=== PATIENT | male | born 1940 | race Caucasian/White ===

== ENCOUNTER 2018-10-04 11:20 | Emergency (ER) | payer OTHER, SELFPAY ==
[2018-10-04 11:34] VITALS: BP 150/76; PULSE 74; RESP 12; TEMP 36.6; O2SAT 99
--- NOTE | 2018-10-04 11:42 | DI.RAD.S_ITS ---
PROCEDURE: XR ELBOW LT MIN 3V INDICATIONS: injury/ now swollen TECHNIQUE: 3 views of the elbow were acquired. COMPARISON: None. FINDINGS: Bones: No fractures or dislocations. No suspicious bony lesions. There is a corticated ossicle adjacent to the medial epicondyle. Soft tissues: No elbow joint effusion. No suspicious soft tissue calcifications. Soft tissue swelling over the olecranon. IMPRESSION: 1. No acute fracture or dislocation. 2. Corticated ossicle adjacent to the medial epicondyle, likely sequela of old injury. 3. Soft tissue swelling over the olecranon. Dictated by: Alejandra Douglas M.D. on 10/04/2018 at 12:12 Approved by: Alejandra Douglas M.D. on 10/04/2018 at 12:15
--- NOTE | 2018-10-04 13:02 | ED.UPPEXIN ---
HPI - Extremity Injury (Upper) <PATITO Matute - Last Filed: 10/04/18 23:32> General Chief Complaint: Extremity Injury, Upper Stated Complaint: LUMP ON ELBOW,SWELLING DOWN L ARM Time Seen by Provider: 10/04/18 13:02 Source: patient and family Mode of arrival: ambulatory Limitations: no limitations History of Present Illness HPI narrative: This is a 77-year-old male, previous smoker, who presents with his spouse with chief complain of left elbow swelling which radiating to his lower arm. The patient reports he bumped his left elbow 2 weeks ago has been having swelling since then in posterior elbow. He was seen at walk-in clinic and diagnosed with olecranon bursitis. He had placed with Levy wrap on his left elbow. He and his we wrapped the area at home but mild of applied to tight and He noticed his lower arm had increased swelling and came to ED for re-evaluation. Patient denies fever, chills, nausea, vomiting, increasing pain, redness, tingling numbness to distal arm, weakness. Patient reports they are about to go on saline for next 4 weeks and he has appointment with his primary care physician when he returns in mid October. Related Data Home Medications Medication Instructions Recorded Confirmed tamsulosin [Flomax] 0.8 mg PO DAILY #0 12/16/10 10/04/18 albuterol sulfate HFA 90 2 puff INHALATION Q4-6H PRN 10/02/18 10/04/18 mcg/actuation aerosol inhaler amlodipine 5 mg tablet 10 mg PO DAILY 10/02/18 10/04/[address] - ER 3 mg 3 mg PO DAILY 10/02/18 10/02/18 capsule,delayed,extended release clopidogrel 75 mg tablet 75 mg PO DAILY 10/02/18 10/04/18 fluticasone propionate 50 2 spray NASAL DAILY 10/02/18 10/02/18 mcg/actuation nasal spray,suspension gabapentin 300 mg capsule 300 mg PO DAILY 10/02/18 10/02/18 losartan 50 mg tablet 50 mg PO BID 10/02/18 10/04/18 metoprolol succinate ER 100 mg 100 mg PO DAILY 10/02/18 10/04/18 tablet,extended release 24 hr pramipexole 1.5 mg tablet 1.5 mg PO BEDTIME 10/02/18 10/02/18 zolpidem 10 mg tablet 10 mg PO BEDTIME #0 tab 10/02/18 10/02/18 alendronate 70 mg PO QWEEK 10/04/18 10/04/18 pravastatin 80 mg PO DAILY 10/04/18 10/04/18 Allergies Allergy/AdvReac Type Severity Reaction Status Date / Time chlorthalidone Allergy Severe hyponatremi Verified 10/02/18 08:44 a hydrochlorothiazide Allergy Severe hyponatremi Verified 10/02/18 08:44 a lisinopril Allergy Severe facial Verified 10/02/18 08:44 swelling Review of Systems <PATITO Matute - Last Filed: 10/04/18 23:32> Review of Systems General: See HPI HEENT: Denies sinus pain, ear pain, sore throat, difficulty swallowing, dizziness. Respiratory: Denies dyspnea, cough, wheezing, hemoptysis, sputum. Cardiovascular: Denies chest pain, palpitations, orthopnea, edema. Gastrointestinal: Denies nausea, vomiting, abdominal pain, diarrhea, constipation, melena. : Denies dysuria, frequency, incontinence, hematuria, urinary retention. Musculoskeletal: See HPI Skin: Denies rash, skin lesions, or other. Neurologic: Denies weakness, headache, numbness, change in speech, confusion, seizures, incoordination. Psychiatric: No concerning psychosocial issues. 12-point review of systems is negative except for those stated above. PFS <PATITO Matute - Last Filed: 10/04/18 23:32> Medical History (Updated 10/04/18 @ 22:57 by PATITO Matute) BPH (benign prostatic hyperplasia) (Acute) HTN (hypertension) (Acute) Hyperlipidemia (Acute) Leg pain (Acute) Restless leg syndrome (Acute) Seasonal allergic rhinitis (Acute) Diverticulitis (Chronic) GI bleed (Chronic) Lymphocytic colitis (Chronic) Prostatitis (Chronic) Sepsis (Chronic) TIA (transient ischemic attack) (Chronic) Surgical History (Updated 10/04/18 @ 22:58 by PATITO Matute) History of rotator cuff surgery (Chronic) Social History Smoking Status: Former smoker Social History Smoking Status: Former smoker Exam <PATITO Matute - Last Filed: 10/04/18 23:32> Narrative Exam Narrative: General appearance: well developed, well nourished, in no acute distress. Head: normocephalic, atraumatic, no scalp lesions, non-tender. Eye: pupil equal, round. EOMI. Nose: nares patent. Oral: mucosa moist. Neck/Thyroid: neck supple, full range of motion, no visible masses. Skin: no suspicious rashes, lesions over visible areas. Warm and dry. Heart: no clubbing, no cyanosis, no edema. Lungs: Breathing even and unlabored. No stridor. No accessory muscles used. Chest: normal shape and expansion. Abdomen: non-obese, non-distended. Neurologic: alert and oriented. 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 Psych: good eye contact, normal affect. Initial Vital Signs Initial Vital Signs: Vital Signs Temperature 97.8 F 10/04/18 11:34 Pulse Rate 74 10/04/18 11:34 Respiratory Rate 12 10/04/18 11:34 Blood Pressure 150/76 H 10/04/18 11:34 Pulse Oximetry 99 10/04/18 11:34 Extrem Right upper extremity: normal to inspection, full ROM and normal capillary refill; no edema Left upper extremity: full ROM, normal capillary refill, edema (posterior elbow, forearm to wrist), elbow/forearm Details: abnormal to inspection, swelling, normal ROM, warmth (very mild), distal pulses intact and other (no erythema); no tenderness, no abrasions and no ecchymosis and wrist Details: swelling; no tenderness and no unusual warmth <Samara Starks MD - Last Filed: 10/05/18 07:13> Initial Vital Signs Initial Vital Signs: Vital Signs Temperature 97.8 F 10/04/18 11:34 Pulse Rate 74 10/04/18 11:34 Respiratory Rate 12 10/04/18 11:34 Blood Pressure 150/76 H 10/04/18 11:34 Pulse Oximetry 99 10/04/18 11:34 Procedures <PATITO Matute - Last Filed: 10/04/18 23:32> Orthopedic Splinting/Casting Injury #1: Side: left Upper Extremity Injury Location: elbow Lower Extremity Immobilizer: Levy wrap Course <PATITO Matute - Last Filed: 10/04/18 23:32> Orders Ordered: ED Orders 10/04/18 11:42 XR elbow LT min 3V Stat Vital Signs - 8 hr 10/04/18 11:34 Temperature 97.8 F Pulse Rate 74 Respiratory Rate 12 Blood Pressure 150/76 H Pulse Oximetry 99 <Samara Starks MD - Last Filed: 10/05/18 07:13> Orders Ordered: ED Orders 10/04/18 11:42 XR elbow LT min 3V Stat Vital Signs - 8 hr 10/04/18 11:34 Temperature 97.8 F Pulse Rate 74 Respiratory Rate 12 Blood Pressure 150/76 H Pulse Oximetry 99 MDM - Extremity Injury (Upper) <Jared PATITO Gregorio - Last Filed: 10/04/18 23:32> Differential Diagnosis Differential diagnosis: Likely other (olecranon bursitis, swelling due to gravity to lower arm, joint infection, effusion in joint) Medical Records Attestation: I reviewed the patient's medical records. Imaging Data XR Elbow: Radiologist's impression: Roverto Martin 77 M [address] [place] [address] XRay Report Signed Patient: Roverto Martin [facility]#: [id number] : 1Acct:[id number] Age/Sex: 77 / MDate of Service: 10/04/18 Loc: ED Accession Number: [id number] Procedure: XR elbow LT min 3V Ordering Provider: Samaar Starks MD PROCEDURE: XR ELBOW LT MIN 3V INDICATIONS: injury/ now swollen TECHNIQUE: 3 views of the elbow were acquired. COMPARISON: None. FINDINGS: Bones: No fractures or dislocations. No suspicious bony lesions. There is a corticated ossicle adjacent to the medial epicondyle. Soft tissues: No elbow joint effusion. No suspicious soft tissue calcifications. Soft tissue swelling over the olecranon. IMPRESSION: 1. No acute fracture or dislocation. 2. Corticated ossicle adjacent to the medial epicondyle, likely sequela of old injury. 3. Soft tissue swelling over the olecranon. Dictated by: Alejandra Douglas M.D. on 10/04/2018 at 12:12 Approved by: Alejandra Douglas M.D. on 10/04/2018 at 12:15 [facility] Narrative Medical decision making narrative: This is a 77-year-old male who had posterior left elbow swelling for last couple of weeks after he bumped his affected elbow. He denies constitutional symptoms, warmth, decreased range of motion, increasing pain, redness on the affected site. He was sailing since the injury and return to home a few days ago then he finally was evaluated walk-in clinic 2 days ago was diagnosed with olecranon bursitis and had placed on Levy wrap and RICE therapy. However, he has been busy using his left arm but used Levy wrap on affected site for swelling and this was reapplied by he his spouse at home. He is about to go on saline again for another 4 weeks and he is here for re-evaluation on swelling that has been spread to his left for arm up to wrist. The physical finding is not indicated for septic joint. X-ray shows but soft tissue swelling over the olecranon. We discussed in length about RICE therapy and apply Levy wrap evenly and not to tightly. Patient is unable to take NSAIDS due to previous GI bleed. Patient advised it is to use [id number] Tylenol for discomfort. I emphasized for monitoring for return precautions such as increasing pain, redness, warmth, fever, joint pain, decrease range of motion, tingling numbness to distal arm and that he needs evaluation very soon if this occurs and possible antibiotic medication treatment for joint infection. Patient verbalized the understanding and agrees with treatment plan. Discharge Plan Departure Patient Disposition: Home Clinical Impression: Bursitis of elbow Qualifiers: Elbow bursitis location: olecranon bursitis Laterality: left Qualified Code(s): M70.22 - Olecranon bursitis, left elbow Discharge Date/Time: 10/04/18 13:30 Interventions: ED Discharge Assessment Last Done: 10/04/18 13:29 Instructions: DI for Elbow Bursitis Activity Restrictions/Additional Instructions: You have been diagnosed with [elbow, olecranon, bursitis on your left arm]. What to do: *Take your medications as directed. Since you are not able to take NSAIDS due to previous GI bleed and using Plavix, please use [id number] Tylenol/acetaminophen as needed for discomfort. Please rest you're left arm use. Use Levy wrap that was provided from ED. Use ice pack for swelling. *Follow up with your primary care provider in 2-3 days, call for an appointment. Let them know you were seen in the ED and that we asked you to be seen in follow up. *Return to ED if you have any new, worsening, or concerning symptoms, such as [increasing redness, swelling, fever, pain, weakness to your L arm, decreased sensation to left arm, in this case you should be seen by nearby clinics/hospital as soon as possible for evaluation and possible antibiotic medication treatment]. Have a safe trip! Prescriptions: No Action losartan 50 mg tablet 50 mg PO BID RF: 0 metoprolol succinate 100 mg tablet extended release 24 hr 100 mg PO DAILY RF: 0 clopidogrel 75 mg tablet 75 mg PO DAILY RF: 0 amlodipine 5 mg tablet 10 mg PO DAILY RF: 0 gabapentin 300 mg capsule 300 mg PO DAILY RF: 0 budesonide 3 mg capsule,delayed,extend.release 3 mg PO DAILY RF: 0 albuterol sulfate [ProAir HFA] 90 mcg/actuation HFA aerosol inhaler 2 puff INHALATION Q4-6H PRN (Reason: Shortness Of Breath) RF: 0 fluticasone propionate [Flonase Allergy Relief] 50 mcg/actuation spray,suspension 2 spray NASAL DAILY RF: 0 pramipexole 1.5 mg tablet 1.5 mg PO BEDTIME RF: 0 tamsulosin [Flomax] 0.4 MG capsule,extended release 24hr 0.8 mg PO DAILY Qty: 0 RF: 0 zolpidem [Ambien] 10 mg tablet 10 mg PO BEDTIME Qty: 0 RF: 0 alendronate 70 mg Tablet 70 mg PO QWEEK RF: 0 pravastatin 80 mg Tablet 80 mg PO DAILY RF: 0 Referrals: Jerilyn Javed MD [Primary Care Provider] -
--- NOTE | 2018-10-04 13:05 | ED_ITS ---
HPI - Extremity Injury (Upper) <PATITO Matute - Last Filed: 10/04/18 23:32> General Chief Complaint: Extremity Injury, Upper Stated Complaint: LUMP ON ELBOW,SWELLING DOWN L ARM Time Seen by Provider: 10/04/18 13:02 Source: patient and family Mode of arrival: ambulatory Limitations: no limitations History of Present Illness HPI narrative: This is a 77-year-old male, previous smoker, who presents with his spouse with chief complain of left elbow swelling which radiating to his lower arm. The patient reports he bumped his left elbow 2 weeks ago has been having swelling since then in posterior elbow. He was seen at walk-in clinic and diagnosed with olecranon bursitis. He had placed with Levy wrap on his left elbow. He and his we wrapped the area at home but mild of applied to tight and He noticed his lower arm had increased swelling and came to ED for re- evaluation. Patient denies fever, chills, nausea, vomiting, increasing pain, redness, tingling numbness to distal arm, weakness. Patient reports they are about to go on saline for next 4 weeks and he has appointment with his primary care physician when he returns in mid October. Related Data Home Medications Medication Instructions Recorded Confirmed tamsulosin [Flomax] 0.8 mg PO DAILY #0 12/16/10 10/04/18 albuterol sulfate HFA 90 2 puff INHALATION Q4-6H PRN 10/02/18 10/04/18 mcg/actuation aerosol inhaler amlodipine 5 mg tablet 10 mg PO DAILY 10/02/18 10/04/[address] - ER 3 mg 3 mg PO DAILY 10/02/18 10/02/18 capsule,delayed,extended release clopidogrel 75 mg tablet 75 mg PO DAILY 10/02/18 10/04/18 fluticasone propionate 50 2 spray NASAL DAILY 10/02/18 10/02/18 mcg/actuation nasal spray,suspension gabapentin 300 mg capsule 300 mg PO DAILY 10/02/18 10/02/18 losartan 50 mg tablet 50 mg PO BID 10/02/18 10/04/18 metoprolol succinate ER 100 mg 100 mg PO DAILY 10/02/18 10/04/18 tablet,extended release 24 hr pramipexole 1.5 mg tablet 1.5 mg PO BEDTIME 10/02/18 10/02/18 zolpidem 10 mg tablet 10 mg PO BEDTIME #0 tab 10/02/18 10/02/18 alendronate 70 mg PO QWEEK 10/04/18 10/04/18 pravastatin 80 mg PO DAILY 10/04/18 10/04/18 Allergies Allergy/AdvReac Type Severity Reaction Status Date / Time chlorthalidone Allergy Severe hyponatremi Verified 10/02/18 08:44 a hydrochlorothiazide Allergy Severe hyponatremi Verified 10/02/18 08:44 a lisinopril Allergy Severe facial Verified 10/02/18 08:44 swelling Review of Systems <PATITO Matute - Last Filed: 10/04/18 23:32> Review of Systems General: See HPI HEENT: Denies sinus pain, ear pain, sore throat, difficulty swallowing, dizziness. Respiratory: Denies dyspnea, cough, wheezing, hemoptysis, sputum. Cardiovascular: Denies chest pain, palpitations, orthopnea, edema. Gastrointestinal: Denies nausea, vomiting, abdominal pain, diarrhea, constipation, melena. : Denies dysuria, frequency, incontinence, hematuria, urinary retention. Musculoskeletal: See HPI Skin: Denies rash, skin lesions, or other. Neurologic: Denies weakness, headache, numbness, change in speech, confusion, seizures, incoordination. Psychiatric: No concerning psychosocial issues. 12-point review of systems is negative except for those stated above. PFS <PATITO Matute - Last Filed: 10/04/18 23:32> Medical History (Updated 10/04/18 @ 22:57 by PATITO Matute) BPH (benign prostatic hyperplasia) (Acute) HTN (hypertension) (Acute) Hyperlipidemia (Acute) Leg pain (Acute) Restless leg syndrome (Acute) Seasonal allergic rhinitis (Acute) Diverticulitis (Chronic) GI bleed (Chronic) Lymphocytic colitis (Chronic) Prostatitis (Chronic) Sepsis (Chronic) TIA (transient ischemic attack) (Chronic) Surgical History (Updated 10/04/18 @ 22:58 by PATITO Matute) History of rotator cuff surgery (Chronic) Social History Smoking Status: Former smoker Social History Smoking Status: Former smoker Exam <PATITO Matute - Last Filed: 10/04/18 23:32> Narrative Exam Narrative: General appearance: well developed, well nourished, in no acute distress. Head: normocephalic, atraumatic, no scalp lesions, non-tender. Eye: pupil equal, round. EOMI. Nose: nares patent. Oral: mucosa moist. Neck/Thyroid: neck supple, full range of motion, no visible masses. Skin: no suspicious rashes, lesions over visible areas. Warm and dry. Heart: no clubbing, no cyanosis, no edema. Lungs: Breathing even and unlabored. No stridor. No accessory muscles used. Chest: normal shape and expansion. Abdomen: non-obese, non-distended. Neurologic: alert and oriented. 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 Psych: good eye contact, normal affect. Initial Vital Signs Initial Vital Signs: Vital Signs Temperature 97.8 F 10/04/18 11:34 Pulse Rate 74 10/04/18 11:34 Respiratory Rate 12 10/04/18 11:34 Blood Pressure 150/76 H 10/04/18 11:34 Pulse Oximetry 99 10/04/18 11:34 Extrem Right upper extremity: normal to inspection, full ROM and normal capillary refill; no edema Left upper extremity: full ROM, normal capillary refill, edema (posterior elbow, forearm to wrist), elbow/forearm Details: abnormal to inspection, swelling, normal ROM, warmth (very mild), distal pulses intact and other (no erythema); no tenderness, no abrasions and no ecchymosis and wrist Details: swelling; no tenderness and no unusual warmth <Samara Starks MD - Last Filed: 10/05/18 07:13> Initial Vital Signs Initial Vital Signs: Vital Signs Temperature 97.8 F 10/04/18 11:34 Pulse Rate 74 10/04/18 11:34 Respiratory Rate 12 10/04/18 11:34 Blood Pressure 150/76 H 10/04/18 11:34 Pulse Oximetry 99 10/04/18 11:34 Procedures <PATITO Matute - Last Filed: 10/04/18 23:32> Orthopedic Splinting/Casting Injury #1: Side: left Upper Extremity Injury Location: elbow Lower Extremity Immobilizer: Levy wrap Course <PATITO Matute - Last Filed: 10/04/18 23:32> Orders Ordered: ED Orders 10/04/18 11:42 XR elbow LT min 3V Stat Vital Signs - 8 hr 10/04/18 11:34 Temperature 97.8 F Pulse Rate 74 Respiratory Rate 12 Blood Pressure 150/76 H Pulse Oximetry 99 <Samara Starks MD - Last Filed: 10/05/18 07:13> Orders Ordered: ED Orders 10/04/18 11:42 XR elbow LT min 3V Stat Vital Signs - 8 hr 10/04/18 11:34 Temperature 97.8 F Pulse Rate 74 Respiratory Rate 12 Blood Pressure 150/76 H Pulse Oximetry 99 MDM - Extremity Injury (Upper) <Jared PATITO Gregorio - Last Filed: 10/04/18 23:32> Differential Diagnosis Differential diagnosis: Likely other (olecranon bursitis, swelling due to gravity to lower arm, joint infection, effusion in joint) Medical Records Attestation: I reviewed the patient's medical records. Imaging Data XR Elbow: Radiologist's impression: Roverto Martin 77 M [address] [place] [address] XRay Report Signed Patient: Roverto Martin [facility]#: [id number] : 1Acct:[id number] Age/Sex: 77 / MDate of Service: 10/04/18 Loc: ED Accession Number: [id number] Procedure: XR elbow LT min 3V Ordering Provider: Samara Starks MD PROCEDURE: XR ELBOW LT MIN 3V INDICATIONS: injury/ now swollen TECHNIQUE: 3 views of the elbow were acquired. COMPARISON: None. FINDINGS: Bones: No fractures or dislocations. No suspicious bony lesions. There is a corticated ossicle adjacent to the medial epicondyle. Soft tissues: No elbow joint effusion. No suspicious soft tissue calcifications. Soft tissue swelling over the olecranon. IMPRESSION: 1. No acute fracture or dislocation. 2. Corticated ossicle adjacent to the medial epicondyle, likely sequela of old injury. 3. Soft tissue swelling over the olecranon. Dictated by: Alejandra Douglas M.D. on 10/04/2018 at 12:12 Approved by: Alejandra Douglas M.D. on 10/04/2018 at 12:15 [facility] Narrative Medical decision making narrative: This is a 77-year-old male who had posterior left elbow swelling for last couple of weeks after he bumped his affected elbow. He denies constitutional symptoms, warmth, decreased range of motion, increasing pain, redness on the affected site. He was sailing since the injury and return to home a few days ago then he finally was evaluated walk-in clinic 2 days ago was diagnosed with olecranon bursitis and had placed on Levy wrap and RICE therapy. However, he has been busy using his left arm but used Levy wrap on affected site for swelling and this was reapplied by he his spouse at home. He is about to go on saline again for another 4 weeks and he is here for re- evaluation on swelling that has been spread to his left for arm up to wrist. The physical finding is not indicated for septic joint. X-ray shows but soft tissue swelling over the olecranon. We discussed in length about RICE therapy and apply Levy wrap evenly and not to tightly. Patient is unable to take NSAIDS due to previous GI bleed. Patient advised it is to use [id number] Tylenol for discomfort. I emphasized for monitoring for return precautions such as increasing pain, redness, warmth, fever, joint pain, decrease range of motion, tingling numbness to distal arm and that he needs evaluation very soon if this occurs and possible antibiotic medication treatment for joint infection. Patient verbalized the understanding and agrees with treatment plan. Discharge Plan Departure Patient Disposition: Home Clinical Impression: Bursitis of elbow Qualifiers: Elbow bursitis location: olecranon bursitis Laterality: left Qualified Code(s): M70.22 - Olecranon bursitis, left elbow Discharge Date/Time: 10/04/18 13:30 Interventions: ED Discharge Assessment Last Done: 10/04/18 13:29 Instructions: DI for Elbow Bursitis Activity Restrictions/Additional Instructions: You have been diagnosed with [elbow, olecranon, bursitis on your left arm]. What to do: *Take your medications as directed. Since you are not able to take NSAIDS due to previous GI bleed and using Plavix, please use [id number] Tylenol/acetaminophen as needed for discomfort. Please rest you're left arm use. Use Levy wrap that was provided from ED. Use ice pack for swelling. *Follow up with your primary care provider in 2-3 days, call for an appointment. Let them know you were seen in the ED and that we asked you to be seen in follow up. *Return to ED if you have any new, worsening, or concerning symptoms, such as [increasing redness, swelling, fever, pain, weakness to your L arm, decreased sensation to left arm, in this case you should be seen by nearby clinics/hospital as soon as possible for evaluation and possible antibiotic medication treatment]. Have a safe trip! Prescriptions: No Action losartan 50 mg tablet 50 mg PO BID RF: 0 metoprolol succinate 100 mg tablet extended release 24 hr 100 mg PO DAILY RF: 0 clopidogrel 75 mg tablet 75 mg PO DAILY RF: 0 amlodipine 5 mg tablet 10 mg PO DAILY RF: 0 gabapentin 300 mg capsule 300 mg PO DAILY RF: 0 budesonide 3 mg capsule,delayed,extend.release 3 mg PO DAILY RF: 0 albuterol sulfate [ProAir HFA] 90 mcg/actuation HFA aerosol inhaler 2 puff INHALATION Q4-6H PRN (Reason: Shortness Of Breath) RF: 0 fluticasone propionate [Flonase Allergy Relief] 50 mcg/actuation spray,suspension 2 spray NASAL DAILY RF: 0 pramipexole 1.5 mg tablet 1.5 mg PO BEDTIME RF: 0 tamsulosin [Flomax] 0.4 MG capsule,extended release 24hr 0.8 mg PO DAILY Qty: 0 RF: 0 zolpidem [Ambien] 10 mg tablet 10 mg PO BEDTIME Qty: 0 RF: 0 alendronate 70 mg Tablet 70 mg PO QWEEK RF: 0 pravastatin 80 mg Tablet 80 mg PO DAILY RF: 0 Referrals: Jerilyn Javed MD [Primary Care Provider] -
== END 2018-10-04 13:30 | disposition home or self-care (01) ==
PROVIDERS: Emergency Provider Nurse Practitioner Family; PCP Family Medicine
DX: M70.22 Olecranon bursitis, left elbow (principal)
CPT/HCPCS: 73080; 99283